=== PATIENT | male | born 1975 | race Caucasian/White ===

== ENCOUNTER 2023-10-15 15:24 | Outpatient (CLI) | payer OTHER | END 2023-10-15 23:59 | disposition home or self-care (01) | LOC: MRI 15:24 | PROVIDERS: ATTEND Pediatrics Sports Medicine | DX: S83.241A Other tear of medial meniscus, current injury, right knee, initial encounter (principal); M25.561 Pain in right knee; M25.461 Effusion, right knee; M94.261 Chondromalacia, right knee; X58.XXXA Exposure to other specified factors, initial encounter; Y93.89 Activity, other specified; Y92.89 Other specified places as the place of occurrence of the external cause; Y99.8 Other external cause status; R60.9 Edema, unspecified | CPT/HCPCS: 73721 ==